=== PATIENT | female | born 1945 | race Caucasian/White ===

== ENCOUNTER 2020-11-30 14:45 | Outpatient (REF) | payer OTHER, SELFPAY ==
[2020-12-01 09:50] LABS: SARS COV2 PCR INHOUSE NEGATIVE (Negative)
== END 2020-11-30 14:46 | disposition home or self-care (01) ==
LOC: HO.LAB 14:45
PROVIDERS: Visit Provider Internal Medicine
DX: Z20.822 Contact with and (suspected) exposure to COVID-19 (principal)
CPT/HCPCS: C9803; U0003